=== PATIENT | male | born 1990 | race Caucasian/White ===

== ENCOUNTER 2017-02-19 17:30 | Emergency (ER) | payer BC, OTHER ==
[~2017-02-19] VITALS: Ht 175.3 cm; Wt 75.0 kg
[2017-02-19 17:31] VITALS: BP 156/93; PULSE 104; RESP 16; TEMP 98.3; O2SAT 96
[2017-02-19 17:45] VITALS: BP 157/88; PULSE 112; RESP 18; TEMP 99.6; O2SAT 97
--- NOTE | 2017-02-19 17:54 | PD ---
HPI Chief Complaint: Respiratory Symptoms Time Seen by Provider: 17:49 Travel History International Travel<30 days: No Contact w/Intl Traveler<30days: No Traveled to known affect area: No History of Present Illness HPI 26-year-old male presents to the emergency department for evaluation of shortness of breath, thoracic back pain for 2 days. Patient states the shortness of breath is worse with laying down. He reports a intermittent cough as well. He states he felt febrile, but has not checked his temperature. Patient denies any cardiac history. He does report a history of pneumonia with admission superficial hospital. Patient denies any cardiac history. He has a history of hypertension. Patient denies any history of IV drug use. He denies any sudden cardiac in his family before the age of 40. Patient states this feels similar to when he had pneumonia in the past. PFSH Past Medical History Hypertension: Yes Social History Alcohol Use: No Tobacco Use: No Substance Use: No Allergies-Medications (Allergen,Severity, Reaction): Coded Allergies: No Known Allergies (Unverified , 02/19/17) Reported Meds & Prescriptions Reported Meds & Active Scripts Active No Active Prescriptions or Reported Medications Review of Systems Except as stated in HPI: all other systems reviewed are Neg Physical Exam Narrative GENERAL: Well-nourished, well-developed male patient, ambulatory. Afebrile. SKIN: Focused skin assessment warm/dry. HEAD: Normocephalic. Atraumatic. EYES: No scleral icterus. No injection or drainage. NECK: Supple, trachea midline. No JVD or lymphadenopathy. CARDIOVASCULAR: Regular rhythm without murmurs, gallops, or rubs. Patient is tachycardic with heart rate 110-114. RESPIRATORY: Breath sounds equal bilaterally. No accessory muscle use. Lung sounds diminished. GASTROINTESTINAL: Abdomen soft, non-tender, nondistended. MUSCULOSKELETAL: No cyanosis, or edema. BACK: Nontender without obvious deformity. No CVA tenderness. Data Data Last Documented VS Vital Signs Date Time Temp Pulse Resp B/P Pulse Ox O2 Delivery O2 Flow Rate FiO2 02/19/17 19:22 99 18 144/89 98 Room Air 02/19/17 17:45 99.6 Orders Electrocardiogram (02/19/17 17:46) Basic Metabolic Panel (Bmp) (02/19/17 17:46) Ckmb (Isoenzyme) Profile (02/19/17 17:46) Complete Blood Count With Diff (02/19/17 17:46) D-Dimer (02/19/17 17:46) Magnesium (Mg) (02/19/17 17:46) Prothrombin Time / Inr (Pt) (02/19/17 17:46) Act Partial Throm Time (Ptt) (02/19/17 17:46) Troponin I (02/19/17 17:46) Chest, Single Ap (02/19/17 17:46) Ecg Monitoring (02/19/17 17:46) Bilateral Bp Monitoring (02/19/17 17:46) Iv Access Insert/Monitor (02/19/17 17:46) Oximetry (02/19/17 17:46) Oxygen Administration (02/19/17 17:46) Sodium Chloride 0.9% Flush (Ns Flush) (02/19/17 18:00) Sodium Chlor 0.9% 1000 Ml Inj (Ns 1000 M (02/19/17 18:00) CKMB (02/19/17 18:15) CKMB% (02/19/17 18:15) Azithromycin Inj (Zithromax Inj) (02/19/17 19:45) Ceftriaxone Inj (Rocephin Inj) (02/19/17 19:45) Labs Laboratory Tests Test 02/19/17 18:15 White Blood Count 12.1 TH/MM3 Red Blood Count 4.73 MIL/MM3 Hemoglobin 14.5 GM/DL Hematocrit 40.7 % Mean Corpuscular Volume 86.1 FL Mean Corpuscular Hemoglobin 30.7 PG Mean Corpuscular Hemoglobin 35.6 % Concent Red Cell Distribution Width 13.2 % Platelet Count 209 TH/MM3 Mean Platelet Volume 7.3 FL Neutrophils (%) (Auto) 75.1 % Lymphocytes (%) (Auto) 13.9 % Monocytes (%) (Auto) 10.3 % Eosinophils (%) (Auto) 0.4 % Basophils (%) (Auto) 0.3 % Neutrophils # (Auto) 9.1 TH/MM3 Lymphocytes # (Auto) 1.7 TH/MM3 Monocytes # (Auto) 1.2 TH/MM3 Eosinophils # (Auto) 0.0 TH/MM3 Basophils # (Auto) 0.0 TH/MM3 CBC Comment DIFF FINAL Differential Comment Prothrombin Time 11.0 SEC Prothromb Time International 1.0 RATIO Ratio Activated Partial 29.5 SEC Thromboplast Time D-Dimer Quantitative (PE/DVT) 0.34 MG/L FEU Sodium Level 139 MEQ/L Potassium Level 3.9 MEQ/L Chloride Level 103 MEQ/L Carbon Dioxide Level 28.2 MEQ/L Anion Gap 8 MEQ/L Blood Urea Nitrogen 11 MG/DL Creatinine 1.05 MG/DL Estimat Glomerular Filtration 85 ML/MIN Rate Random Glucose 96 MG/DL Calcium Level 8.8 MG/DL Magnesium Level 1.7 MG/DL Total Creatine Kinase 163 U/L Creatine Kinase MB 1.0 NG/ML Troponin I LESS THAN 0.02 NG/ML MDM Medical Decision Making Medical Screen Exam Complete: Yes Emergency Medical Condition: Yes Medical Record Reviewed: Yes Interpretation(s) Last Impressions Chest X-Ray 02/19/171745 Signed Impressions: Service Date/Time: Tuesday, February 19, 2017 18:03 - CONCLUSION: Focal rounded area of consolidative opacity in the right suprahilar region most characteristic of rounded pneumonia. A followup chest study is recommended after treatment. Mao Yoder MD Differential Diagnosis Pneumonia versus chest wall pain versus ACS versus PE Narrative Course 26-year-old male presents to the emergency department for evaluation of thoracic back pain, shortness of breath for 2 days. Patient reports history of pneumonia. He is tachycardic on exam. EKG, CBC, BMP, CK, Troponin, Magnesium, PTT, PT/INR, d-dimer are ordered and pending. Patient is given NS 1 L IV bolus. Chest x-ray is ordered and pending. EKG shows sinus rhythm, heart rate 100, no acute ST changes. CBC shows leukocytosis of 12.1. BMP is unremarkable. CK is 163. Troponin is less than 0.02. Magnesium is 1.7. Coags are unremarkable. D-dimer 0.34. Chest x-ray shows focal rounded area of consolidative opacity in the right suprahilar region most characteristic of rounded pneumonia. A followup chest study is recommended after treatment. Patient is given DuoNeb 2, prednisone 60 mg by mouth. He is given azithromycin 500 mg IV, Rocephin 1 g IV. Patient was discharged prescription for azithromycin. He is requesting albuterol for his nebulizer that he has at home. He'll also be given a prescription for a short dose of prednisone. The patient is instructed to follow his primary care physician for follow-up chest study after treatment to make sure pneumonia resolves. He verbalizes agreement and understanding. He is to return here for any worsening symptoms. The patient was discharged in stable condition with instructions, including return instructions and follow up instructions. Diagnosis Primary Impression: Pneumonia Qualified Code: J18.1 - Pneumonia of right upper lobe due to infectious organism Referrals: Primary Care Physician call for appointment Patient Instructions: Community Acquired Pneumonia (ED), General Instructions Departure Forms: Tests/Procedures, Work Release Enter return to work date: Feb 22, 2017 Additional Instructions: Take antibiotic as directed until gone. Start this tomorrow. Take prednisone as directed. Start this tomorrow. Use albuterol in your nebulizer as needed. Follow up with your primary care physician. Our radiologist recommends repeat imaging after treatment to ensure resolution of pneumonia. Return to the emergency department for any acute, worsening of symptoms. Med/Other Pt SpecificInfo: Prescription(s) given Scripts Azithromycin (Zithromax Z-Mario)250 Mg [id number] Mg PO DIRECTED #1 DSPK Ref 0 500 MG (2 tabs) day 1, then 1 tab days 2-5. Prov:Richelle Garcia 02/19/17 Prednisone 20 Mg Tab40 Mg PO DAILY 4 Days Ref 0 Prov:Richelle Garcia 02/19/17 Albuterol Neb 2.5 Mg/3 Ml Neb2.5 Mg NEB QID NEB #60 NEBULE Ref 0 Prov:Richelle Garcia 02/19/17 Disposition: 01 DISCHARGE HOME Condition: Stable Richelle Garcia Feb 19, 2017 17:54
[2017-02-19] MEDS ORDERED: SODIUM CHLOR 0.9% 1000 ML INJ 1,000 ML IV ONE (18:00)
[2017-02-19] MEDS ORDERED: SODIUM CHLORIDE 0.9% FLUSH 10 ML FLUSH IVF PRN (18:00)
[2017-02-19 18:25] VITALS: BP_SYST 151; BP_SYST 158; BP_DIAS 88; BP_DIAS 89; PULSE 112; RESP 18; O2SAT 95; O2SAT 96
--- NOTE | 2017-02-19 18:34 | RADRPT ---
EXAM DATE/TIME: 02/19/2017 18:03 [facility] COMPARISON: No previous studies available for comparison. INDICATIONS : Short of Breath with fever MEDICAL HISTORY : None. SURGICAL HISTORY : None. ENCOUNTER: Initial ACUITY: 1 day PAIN SCORE: 0/10 LOCATION: Bilateral chest FINDINGS: A single AP erect view of the chest was obtained and demonstrates a focal rounded area of consolidati ve opacity in the right suprahilar region measuring up to approximately 4.5 cm in diameter. The left lung is clear. There is no effusion. cardiomediastinal contours are unremarkable. Osseous structures are intact. CONCLUSION: Focal rounded area of consolidative opacity in the right suprahilar region most john cteristic of rounded pneumonia. A followup chest study is recommended after treatment. Mao Yoder MD on February 19, 2017 at 18:32 Board Certified Radiologist. This report was verified electronically.
[2017-02-19 18:42] LABS: AUTOMATED NEUTROPHIL # 9.1 TH/MM3 (1.8-7.7); BASOPHIL % 0.3 % (0.0-2.0); EOSINOPHIL % 0.4 % (0.0-4.0); HEMATOCRIT 40.7 % (39.0-51.0); HEMO FLAGS DIFF FINAL; LYMPH % 13.9 % (9.0-44.0); LYMPHOCYTE # 1.7 TH/MM3 (1.0-4.8); MEAN CELL VOLUME 86.1 FL (80.0-100.0); MEAN CORPUSCULAR HEMOGLOBIN 30.7 PG (27.0-34.0); MEAN CORPUSCULAR HGB CONC 35.6 % (32.0-36.0); MONO % 10.3 % (0.0-8.0); NEUT % 75.1 % (16.0-70.0); PLATELET COUNT 209 TH/MM3 (150-450); RED BLOOD COUNT 4.73 MIL/MM3 (4.50-5.90); RED CELL DISTRIBUTION WIDTH 13.2 % (11.6-17.2); WHITE BLOOD COUNT 12.1 TH/MM3 (4.0-11.0)
[2017-02-19 19:01] LABS: ANION GAP 8 MEQ/L (5-15); BICARBONATE 28.2 MEQ/L (21.0-32.0); BLOOD UREA NITROGEN 11 MG/DL (7-18); CHLORIDE 103 MEQ/L (98-107); GLOMERULAR FILTRATION RATE 85 ML/MIN (>89); MAGNESIUM 1.7 MG/DL (1.5-2.5); POTASSIUM 3.9 MEQ/L (3.5-5.1); SODIUM (NA) 139 MEQ/L (136-145)
[2017-02-19 19:04] LABS: CREATINE KINASE 163 U/L (39-308)
[2017-02-19 19:21] LABS: APTT (PATIENT) 29.5 SEC (24.3-30.1)
[2017-02-19 19:22] VITALS: BP 144/89; PULSE 99; RESP 18; O2SAT 98
[2017-02-19] MEDS ORDERED: ZITHTAB PO (19:40)
[2017-02-19] MEDS ORDERED: ALBU0.08 NEB (19:40)
[2017-02-19] MEDS ORDERED: PRED20 PO (19:40)
[2017-02-19] MEDS: RESP: ALBUTEROL 2.5 MG/IPRATROPIUM 0.5 MG NEB (SCH) INH (19:43)
[2017-02-19] MEDS ORDERED: cefTRIAXone INJ 1,000 MG in SODIUM CHLORIDE 0.9% INJ 100 ML IV ONE (19:45)
[2017-02-19] MEDS ORDERED: AZITHROMYCIN INJ 500 MG in SODIUM CHLOR 0.9% 250 ML INJ 250 ML IV ONE (19:45)
[2017-02-19] MEDS ORDERED: predniSONE 20 MG TAB PO ONE (19:45)
[2017-02-19 20:19] VITALS: BP 154/88; PULSE 115; RESP 18; O2SAT 97
[2017-02-19 21:32] VITALS: BP 145/80
--- NOTE | 2017-02-19 21:44 | EKG ---
Date Performed: 02/19/2017 Time Performed: 17:55:49 PTAGE: 26 years EKG: SINUS TACHYCARDIA ABNORMAL RHYTHM ECG NO PREVIOUS TRACING DOCTOR: Milan Del Cid Interpretating Date/Time 02/19/2017 21:43:29
== END 2017-02-19 21:42 | disposition home or self-care (01) ==
LOC: NEPC 17:30
DX: J18.1 Lobar pneumonia, unspecified organism (principal); I10 Essential (primary) hypertension
CPT/HCPCS: 71010; 80048; 82550; 82552; 83735; 84484; 85025; 85379; 85610; 85730; 93005; 94640; 94664; 96374; 96375; 99285; J0456; J0696; J7030; J7050; J7512